=== PATIENT | female | born 1975 | race Caucasian/White ===

== ENCOUNTER 2021-07-02 20:15 | Emergency (ER) | payer MEDICAID, OTHER ==
--- NOTE | 2021-07-02 20:58 | EDM.PDOC ---
ED HPI GENERAL MEDICAL PROBLEM - General Chief Complaint: Upper Extremity Injury/Pain Stated Complaint: R SHOULDER PAIN Time Seen by Provider: 07/02/21 20:25 Source of Information: Reports: Patient History Limitations: Reports: No Limitations - History of Present Illness INITIAL COMMENTS - FREE TEXT/NARRATIVE: Patient states 3 days ago at work while lifting heavy boxes from a shelf down to the floor one of the boxes was heavier and it pulled her right shoulder down quicker than she could let the box down. She immediately had a sharp burning type pain in the middle front part of her shoulder. She says it feels like someone is sticking her with a hot needle in the middle she rates her pain about a 5 out of 10. She has taken some ibuprofen earlier today and states that helped a little she has not applied any ice to the area. She denies any paresthesias loss of sensation coldness to the extremity she has no other complaints at this time Onset Date: 06/28/21 Duration: Day(s): Quality: Reports: Sharp, Stabbing Severity: Moderate Improves with: Reports: Medication, Rest Worsens with: Reports: Other (lifting heavy boxes ) Associated Symptoms: Reports: No Other Symptoms - Related Data Allergies Allergy/AdvReac Type Severity Reaction Status Date / Time amoxicillin Allergy Airway Verified 12/27/17 11:57 Tightness bee pollen Allergy Anaphylactic Verified 12/27/17 11:57 Shock nitrofurantoin Allergy Hives Verified 12/27/17 11:57 [From Macrobid] nitrofurantoin Allergy Hives Verified 12/27/17 11:57 macrocrystalline [From Macrobid] pseudoephedrine HCl Allergy Hives Verified 12/27/17 11:57 [From Sudafed] Home Meds: Home Meds Levothyroxine Sodium [Synthroid] 75 mcg PO BEDTIME #60 tablet 12/27/17 [Rx] Metoprolol Succinate [Toprol Xl] 25 mg PO BEDTIME #30 tab.er.24h 12/27/17 [Rx] Past Medical History HEENT History: Reports: Allergic Rhinitis, Other (See Below). Denies: Cataract, Glaucoma, Hard of Hearing, Impaired Vision, Macular Degeneration, Retinal Detachment Other HEENT History: Caries Cardiovascular History: Reports: Other (See Below). Denies: Afib, Aneurysm, Arrhythmia, Blood Clots/VTE/DVT, CAD, Heart Murmur, High Cholesterol, Hypertension, PVD, Syncope Other Cardiovascular History: She does not know her cholesterol status. Gastrointestinal History: Reports: Chronic Diarrhea, GERD, Irritable Bowel Syndrome, Other (See Below). Denies: Celiac Disease, Cholelithiasis, Chronic Constipation, Fecal Incontinence, Gastritis, GI Bleed, Hepatitis, Inflammatory Bowel Disease, Jaundice, Pancreatitis, PUD Other Gastrointestinal History: GERD during pregnancies. Genitourinary History: Reports: STD, UTI, Recurrent, Other (See Below). Denies: Acute Renal Failure, Chronic Renal Insuffiency, Dialysis, Renal Calculus, Retention, Urinary, Urinary Incontinence Other Genitourinary History: Chlamydia at age 18 previously treated. 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 Full term without complications during pregnancies or deliveries, although hemorrhage in 2000 as below Musculoskeletal History: Reports: Arthritis, Osteoarthritis. Denies: Back Pain, Chronic, Fracture, Fibromyalgia, Gout, Neck Pain, Chronic, RA, SLE Other Musculoskeletal History: Brother with hip dysplasia. Neurological History: Reports: Headaches, Chronic, Migraines. Denies: Cerebral Aneurysms, Concussion, CVA, Head Trauma, MS, Neuropathy, Peripheral, Parkinson's, Seizure, TIA Psychiatric History: Reports: Addiction, Anxiety, Depression, Other (See Below). Denies: Abuse, Victim of, ADD, ADHD, Psych Hospitalization(s), PTSD, Suicide Attempt, Suicidal Ideation Other Psychiatric History: Brother with history anxiety depression disorder and drug abuse. Mother with history of anxiety depression disorder and alcohol abuse. Endocrine/Metabolic History: Reports: Hypothyroidism. Denies: Diabetes, Gestational, Diabetes, Type I, Diabetes, Type II, IDDM, Osteoporosis Hematologic History: Reports: Blood Transfusion(s), Other (See Below). Denies: Anemia, Iron Deficiency Other Hematologic History: Problems with postoperative bleeding including required transfusion in 2001 . No previous workup for blood disorder. Immunologic History: Reports: None. Denies: AIDS, HIV, SLE Oncologic (Cancer) History: Reports: Cervix, Other (See Below). Denies: Basal Cell Carcinoma, Breast, Hodgkin's Lymphoma, Leukemia, Lymphoma, Malignant Melanoma, Non-Hodgkin's Lymphoma, Ovarian, Squamous Cell Carcinoma, Uterine Other Oncologic History: Cervical dysplasia in 1997 requiring cryotherapy as below Dermatologic History: Reports: None. Denies: Eczema, Psoriasis - Infectious Disease History Infectious Disease History: Reports: Chicken Pox, Other (See Below). Denies: C-Difficile, Measles, Meningitis, Mononucleosis, MRSA, Mumps, Pertussis (Whooping Cough), Rheumatic Fever, Rubella, Scarlet Fever, Shingles, TB, VRE Other Infectious Disease History: Chlamydia in 1994 as above - Past Surgical History Head Surgeries/Procedures: Reports: None HEENT Surgical History: Reports: Adenoidectomy, Oral Surgery, Other (See Below). Denies: Cataract Surgery, Eye Surgery, Laser Surgery, LASIK, Myringotomy w Tube(s), Naso-Sinus Surgery, Tonsillectomy Other HEENT Surgeries/Procedures: Adenoidectomy without tonsillectomy as a child. [place] teeth extraction 4 in 2001 with additional multiple teeth extractions including right lower premolar excision and 12/17/2017. Cardiovascular Surgical History: Reports: None. Denies: Varicose Respiratory Surgical History: Reports: None. Denies: Thoracentesis GI Surgical History: Reports: None. Denies: Appendectomy, Cholecystectomy, Colonoscopy, EGD, Hernia, Abdominal, Hernia, Inguinal, Hernia Repair/Other Female Surgical History: Reports: Cervical Cryotherapy, Other (See Below). Denies: Breast Biopsy, Section, D&C, Hysterectomy, Salpingo- Oophorectomy, Tubal Ligation Other Female Surgeries/Procedures: Cervical cryotherapy in 1997 secondary to cervical dysplasia Endocrine Surgical History: Reports: None. Denies: Thyroid Biopsy Musculoskeletal Surgical History: Reports: None. Denies: Arthroscopic Procedure, Carpal Tunnel, Ganglion Cyst, Joint Replacement, ORIF, Shoulder Surgery Oncologic Surgical History: Reports: None Dermatological Surgical History: Reports: None - Past Imaging History Past Imaging History: Reports: Ultrasound (OB ultrasounds) Social & Family History - Family History HEENT: Reports: Other (See Below). Denies: Glaucoma, Macular Degeneration, R etinal Detachment Other HEENT Family History: Mother with blindness secondary to unknown type of circulation problem. Cardiac: Reports: Blood Clots/VTE/DVT, Bypass, High Cholesterol, Hypertension, PVD/COD, Other (See Below). Denies: Afib, Aneurysm, Arrhythmia, CAD, Heart Failure, Heart Murmur, [place], Syncope Other Cardiac Family History: Mother with history of recurrent MIs initially in her 40s with multiple CABGs with fatal [place] at age 68. She also had problems with peripheral vascular disease with secondary blindness as above. Mother with hypertension and hyperlipidemia. Respiratory: Reports: Asthma, Sleep Apnea, Other (See Below). Denies: COPD, PE Other Respiratory Family Hisory: Daughters 3 with asthma. Brother with sleep apnea. GI: Reports: None. Denies: Celiac Disease, Cholelithiasis, Colon Polyps, GERD, Inflammatory Bowel Disease, Irritable Bowel Syndrome, PUD : Reports: None. Denies: Renal Calculus, Renal Disease/Insufficiency OBGYN: Reports: None. Denies: Dysfunctional uterine bleeding, Endometriosis, Fibroids, Recurrent Spontaneous Musculoskeletal: Reports: Arthritis, SLE, Other (See Below). Denies: Gout, RA Other Musculoskeletal Family History: Mother with SLE. Brother with unknown type of arthritis with hip dysplasia. Son with pectus excavatum. Daughter with Beaver's disease. Neurological: Reports: CVA, Other (See Below). Denies: Alzheimers Disease, Dementia, Migraines, MS, Parkinson's, Seizure, TIA Other Neurological Family History: Maternal grandmother with fatal CVA in her 70s. Paternal grandfather with fatal CVA at an unknown age. Daughters 2 with migraine headaches. Endocrine/Metabolic: Reports: Diabetes, type II, IDDM, Other (See Below). Denies: Diabetes, Gestational, Diabetes, Type I, Diabetes Mellitus, Type 3c, Hypothyroidism Other Endocrine/Metabolic Family History: Maternal uncle and mother with IDDM. Hematologic: Reports: Anemia, SLE, Other (See Below) Other Hematologic Family History: Mother with SLE with secondary anemia. Immunologic: Reports: SLE, Other (See Below). Denies: AIDS, HIV Other Immunologic Family History: Mother with SLE as above. Dermatologic: Reports: Eczema, Other (See Below). Denies: Psoriasis Other Dermatologic Family History: Son and daughter with eczema. Oncologic: Reports: Thyroid, Other (See Below). Denies: Breast, Cervix, Colon, Hodgkin's Lymphoma, Leukemia, Lymphoma, Metastatic, Non-Hodgkin's Lymphoma, Ovarian, Skin, Uterine Other Oncologic Family History: Paternal great grandmother with thyroid cancer. - Caffeine Use Caffeine Use: Reports: Soda (2-3 sodas per day), Tea (1 glass 2 times per month). 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 Denies: Pleuritic Chest Pain Cardiovascular: Reports: No Symptoms GI/Abdominal: Reports: No Symptoms Genitourinary: Reports: No Symptoms Musculoskeletal: Reports: Shoulder Pain. Denies: Neck Pain, Arm Pain, Back Pain Skin: Reports: No Symptoms Neurological: Reports: No Symptoms Psychiatric: Reports: No Symptoms ED EXAM, GENERAL - Physical Exam Exam: See Below Exam Limited By: No Limitations General Appearance: Alert, WD/WN, No Apparent Distress Neck: Normal Inspection, Supple, Non-Tender, Full Range of Motion Respiratory/Chest: No Respiratory Distress, Lungs Clear, Normal Breath Sounds, No Accessory Muscle Use, Chest Non-Tender Cardiovascular: Normal Peripheral Pulses, Regular Rate, Rhythm, No Edema, No Gallop, No JVD, No Murmur Back Exam: Full Range of Motion Extremities: Normal Inspection, Normal Range of Motion, No Pedal Edema, Normal Capillary Refill, Other (Right shoulder patient has full range of motion normal Apley's scratch maneuver normal pushoff no tenderness palpation over the clavicle or the scapular area normal speeds normal Neer's normal Yergason's positive tenderness palpation over the bicipital groove with reproduction of the same type pain ). No: Non-Tender Neurological: Alert, Oriented, CN II-XII Intact, Normal Cognition, Normal Gait, No Motor/Sensory Deficits Psychiatric: Normal Affect, Normal Mood Skin Exam: Warm, Dry, Intact, Normal Color, No Rash Course - Vital Signs Text/Narrative:: Educated patient in regards to applying ice to the area taking [id number] NSAIDs and following up with a primary care provider Suspect transverse ligament strain Departure - Departure Time of Disposition: 20:55 Disposition: Home, Self-Care 01 Condition: Good Clinical Impression: Right shoulder strain - Discharge Information *PRESCRIPTION DRUG MONITORING PROGRAM REVIEWED*: No *COPY OF PRESCRIPTION DRUG MONITORING REPORT IN PATIENT MARY: No Forms: ED Department Discharge - Problem List & Annotations (1) Right shoulder strain SNOMED Code(s): 434091746 Code(s): S46.911A - STRAIN UNSP MUSC/FASC/TEND AT SHLDR/UP ARM, RIGHT ARM, INIT Status: Acute
[2021-07-02 22:01] VITALS: BP 148/86; PULSE 100
== END 2021-07-02 21:50 | disposition home or self-care (01) ==
LOC: VM.ED 20:15
DX: S46.911A Strain of unspecified muscle, fascia and tendon at shoulder and upper arm level, right arm, initial encounter (principal); E03.9 Hypothyroidism, unspecified; Z88.0 Allergy status to penicillin; Z91.030 Bee allergy status; Z88.1 Allergy status to other antibiotic agents; Z88.8 Allergy status to other drugs, medicaments and biological substances; Z79.899 Other long term (current) drug therapy; X50.0XXA Overexertion from strenuous movement or load, initial encounter; Y92.89 Other specified places as the place of occurrence of the external cause; Y99.0 Civilian activity done for income or pay
CPT/HCPCS: 99283